=== PATIENT | male | born 2000 | race Caucasian/White ===

== ENCOUNTER 2023-05-14 23:41 | Emergency (ER) | payer OTHER ==
[2023-05-15] MEDS ORDERED: BACTRIM DS TABLET PO STA (00:09)
[2023-05-15] MEDS ORDERED: BACTRIM DS TABLET PO ONE (00:13)
--- NOTE | 2023-05-15 00:15 | ERPHSYRPT ---
- History of Present Illness Time Seen by Provider: 05/14/23 23:55 Source: patient Exam Limitations: no limitations Patient Subjective Stated Complaint: pt states he was out of town for work and staying in hotel. on tuesday noticed red areas in axillas. red, raised areas have gotten larger. has increased pain with lifting arms. Triage Nursing Assessment: pt alert and oriented, answers questions approp. pt ambulates into room with steady gait noted. respirations nonlabored. skin warm and dry. red raised areas to bilat axilals. no drainage noted at this time. Physician History: 23-year-old male presented in the ER with chief complaint of right axilla swelling gradually increasing for the last couple of days. Patient reported initially started as a pea-sized and gradually increased to the size of nickel. Mild to moderate dull aching pain with movements and rubbing. No fever or chills reported. Allergies/Adverse Reactions: No Known Drug Allergies Allergy (Verified 05/14/23 23:54) Hx Tetanus, Diphtheria Vaccination/Date Given: Yes Hx Influenza Vaccination/Date Given: No Immunizations Up to Date: Yes Travel Risk - International Travel Have you traveled outside of the country in past 3 weeks: No - Coronavirus Screening Are you exhibiting any of the following symptoms?: No Close contact with a COVID-19 positive Pt in past 14-21 Days: No - Vaccine Status Have you recieved a Covid-19 vaccination: Yes [employer]: [employer] - Review of Systems Constitutional: No Symptoms Ears, Nose, & Throat: No Symptoms Respiratory: No Symptoms Cardiac: No Symptoms Abdominal/Gastrointestinal: No Symptoms Skin: Induration Neurological: No Symptoms Psychological: No Symptoms Endocrine: No Symptoms Hematologic/Lymphatic: No Symptoms - Past Medical History Psycho-Social History: Anxiety, Depression - Past Surgical History Past Surgical History: No - Social History Smoking Status: Never smoker Exposure to second hand smoke: No Drug Use: none Patient Lives Alone: No - Nursing Vital Signs Nursing Vital Signs: Initial Vital Signs Temperature 98.1 F 05/14/23 23:54 Pulse Rate 87 05/14/23 23:54 Respiratory Rate 16 05/14/23 23:54 Blood Pressure 152/87 05/14/23 23:54 O2 Sat by Pulse Oximetry 99 05/14/23 23:54 Pain Scale Pain Intensity 1 - Physical Exam General Appearance: no apparent distress, alert Eye Exam: PERRL/EOMI Ears, Nose, Throat Exam: normal ENT inspection Neck Exam: normal inspection, supple, full range of motion Respiratory Exam: normal breath sounds, lungs clear Cardiovascular Exam: regular rate/rhythm, normal heart sounds Extremity Exam: normal inspection, normal range of motion Neurologic Exam: alert, oriented x 3, cooperative Skin Exam: normal color, rash, other (2 x 2 cm area of swelling/induration right axilla. Forearm warm, mildly tender. Negative fluctuation.) SpO2 Interpretation: normal SpO2: 99 O2 Delivery: Room Air Ordered Tests: Medication Summary Discontinued Medications Generic Name Dose Route Start Last Admin Trade Name Jaxsonq PRN Reason Stop Dose Admin Trimethoprim/Sulfamethoxazole 1 tab 05/15/23 00:09 05/15/23 00:14 Smz/Tmp Ds Tablet 1 Tablet PO 05/15/23 00:10 1 tab STAT STA Administration Trimethoprim/Sulfamethoxazole Confirm 05/15/23 00:13 Smz/Tmp Ds Tablet 1 Tablet Administered 05/15/23 00:14 Dose 1 tab PO .STTouchPo Android POS-MED ONE - Progress Progress: unchanged Progress Note: 05/15/23 00:13 23-year-old is evaluated in the ER for right axilla swelling for the last 2 days with gradually worsening. Patient has tenderness to palpation, no fluctuation. Started on Bactrim, recommended Tylenol/ibuprofen, warm compresses and outpatient follow-up. Counseled pt/family regarding: diagnosis, need for follow-up Medical Desision Making - Risk of complications The pt has a mod risk of morbidity or mortality based on: Need for prescription drug management - Departure Departure Disposition: Home Clinical Impression: Axillary abscess Condition: Stable Critical Care Time: No Referrals: BRET FRITZ [Primary Care Provider] - Follow up with PCP 2 days Instructions: Skin Abscess Additional Instructions: Take Tylenol/ibuprofen as needed. Intermittent warm compresses application. Follow-up with primary care for reevaluation. Return to ER for any worsening of pain swelling, fever chills etc.
[2023-05-15 00:26] VITALS: RESP 16; TEMP 98.1; O2SAT 99
[2023-05-15 00:54] VITALS: BP 127/83; PULSE 74
== END 2023-05-15 00:47 | disposition home or self-care (01) ==
LOC: ED 23:41
DX: L02.411 Cutaneous abscess of right axilla (principal)
CPT/HCPCS: 99281; A9270-GY